=== PATIENT | male | born 1970 | race Caucasian/White ===

== ENCOUNTER 2023-01-31 21:37 | Emergency (ER) | payer OTHER ==
[~2023-01-31] VITALS: Ht 185.4 cm; Wt 86.2 kg
[2023-01-31 23:06] LABS: BASOPHILS % 0.2 % (0.0-2.0); EOSINOPHILS % 3.6 % (0.0-5.0); HEMOGLOBIN. 14.8 g/dL (14.0-18.0); LYMPHOCYTES % 31.4 % (20.0-50.0); MEAN CORPUSCULAR HEMOGLOBIN 28.1 pg (28.0-32.0); MEAN CORPUSCULAR VOLUME 81.8 fL (80.0-94.0); MONOCYTES % 6.5 % (2.0-8.0); NEUTROPHILS % 58.3 % (40.0-76.0); PLATELET 272 x1000/uL (130-400); RED BLOOD CELL COUNT 5.26 mill/uL (4.7-6.1); RED CELL DISTRIBUTION WIDTH 13.9 % (11.6-14.6)
[2023-01-31 23:16] LABS: PROTHROMBIN TIME 10.9 sec (9.6-11.0)
[2023-01-31 23:26] LABS: CHLORIDE 102 mEq/L (98-107)
[2023-02-01] MEDS ORDERED: LISI20TA31 MT (08:10)
[2023-02-01] MEDS ORDERED: LISINOPRIL 20MG TABLET PO ONE (08:15)
[2023-02-01] MEDS ORDERED: LISINOPRIL 10MG TABLET PO SCH (08:30)
[2023-02-01 09:00] VITALS: BP 155/100
== END 2023-02-01 09:30 | disposition home or self-care (01) ==
LOC: ER 21:37
DX: R07.89 Other chest pain (principal); E78.00 Pure hypercholesterolemia, unspecified; I10 Essential (primary) hypertension
CPT/HCPCS: 36415; 71045; 80053; 84484; 85025; 99284